=== PATIENT | female | born 1935 | race African-American/Black ===

== ENCOUNTER 2016-11-10 02:01 | Emergency (ER) | payer MEDICARE ==
[2015-05-24 11:11] VITALS: BMI 16.8
[~2016-11-10 02:01] MED LIST: ACIDOPHILUS LAC1 CAP PO; BAYER CHEWABLE81 MG PO; CENTRUM COMPLE1 EACH PO; COLACE100 MG PO; EZFE 200200 MG PO; HYDROCODONE-APA1 TAB PO; IPRAT-ALBUT 0.5-3 ML UPD; LEVAQUIN500 MG PO; LISINOPRIL10 MG PO; LOVENOX40 MG/0.4 SC; LYRICA25 MG PO; MAG-OX 400 MG400 MG PO; MAG-OXIDE400 MG PO; MUCUS RELIEF400 MG PO; MULTI-DAY VITAM1 TAB PO; POLYTRIM EYE DR10 ML EACH EYE; REMERON15 MG PO; SENNA8.6 MG PO; TYLENOL W/CODEI1 TAB PO; ULTRAM50 MG PO; VITAMIN D2000 UNIT PO; ZOCOR40 MG PO
[2016-11-10 02:44] LABS: BASOPHILS 0.6 % (0-2); EOSINOPHILS 2.8 % (0-7); HEMATOCRIT 38.2 % (36.0-48.0); HEMOGLOBIN 12.4 g/dL (12-16); IMMATURE GRANULOCYTES 0.3 % (0-5); MCH 27.6 pg (26.0-34.0); MCHC 32.5 g/dL (31.0-37.0); MCV 85.1 fL (80.0-100.0); MEAN PLATELET VOLUME 9.4 fL (7.4-10.4); MONOCYTES 6.9 % (2-11); NEUTROPHILS 52.4 % (40-80); PLATELET COUNT 306 10x3/uL (130-400); RBC 4.49 10x6/uL (4.00-5.40); RDW 14.6 % (11.5-14.5); WBC 6.4 10x3/uL (4.8-10.8)
[2016-11-10 02:57] LABS: APTT 25.6 SECONDS (22.8-39.4); INR 0.99 (0.85-1.17); PROTIME 12.9 SECONDS (11.6-15.0)
[2016-11-10 03:02] LABS: ALBUMIN 3.6 g/dL (3.4-5.0); ALKALINE PHOSPHATASE 130 U/L (46-116); ALT (SGPT) 29 U/L (10-68); CALC OSMOLALITY 279 mosm/kg (275-300); CALCIUM 9.3 mg/dL (8.5-10.1); CARBON DIOXIDE 31.3 mmol/L (21.0-32.0); CHLORIDE - SERUM 105 mmol/L (98-107); CREATININE - SERUM 0.7 mg/dL (0.6-1.3); GLUCOSE 119 mg/dL (74-106); POTASSIUM - SERUM 4.1 mmol/L (3.5-5.1); PROTEIN - SERUM 7.8 g/dL (6.4-8.2); SODIUM 140 mmol/L (136-145); UREA NITROGEN 12 mg/dL (7-18); eGFR NON AFRICAN AMERICAN 85 mL/min (90-120)
== END 2016-11-10 04:50 | disposition home or self-care (01) ==
LOC: D.ER 02:01
PROVIDERS: Emergency Medicine
DX: K92.0 Hematemesis (principal); Z86.73 Personal history of transient ischemic attack (TIA), and cerebral infarction without residual deficits

== ENCOUNTER 2017-01-31 01:17 | Emergency (ER) | payer MEDICARE | END 2017-01-31 03:32 | disposition home or self-care (01) | LOC: D.ER 01:17 | DX: R11.10 Vomiting, unspecified (principal); N39.0 Urinary tract infection, site not specified; Z86.73 Personal history of transient ischemic attack (TIA), and cerebral infarction without residual deficits; Z85.118 Personal history of other malignant neoplasm of bronchus and lung ==

== ENCOUNTER 2017-05-18 22:26 | Emergency (ER) | payer MEDICARE ==
[2015-05-24 11:11] VITALS: BMI 16.8
[2017-05-18 23:14] LABS: BASOPHILS 0.5 % (0-2); EOSINOPHILS 3.2 % (0-7); HEMATOCRIT 35.9 % (36.0-48.0); HEMOGLOBIN 11.7 g/dL (12-16); IMMATURE GRANULOCYTES 0.3 % (0-5); MCH 27.3 pg (26.0-34.0); MCHC 32.6 g/dL (31.0-37.0); MCV 83.7 fL (80.0-100.0); MEAN PLATELET VOLUME 8.9 fL (7.4-10.4); RBC 4.29 10x6/uL (4.00-5.40); RDW 14.9 % (11.5-14.5); WBC 7.7 10x3/uL (4.8-10.8)
[2017-05-18 23:20] LABS: PLATELET COUNT 372 10x3/uL (130-400)
[2017-05-18 23:26] LABS: APTT 26.8 SECONDS (22.8-39.4); INR 1.05 (0.85-1.17); PROTIME 13.3 SECONDS (11.6-15.0)
[2017-05-18 23:30] LABS: ALBUMIN 3.6 g/dL (3.4-5.0); ALKALINE PHOSPHATASE 131 U/L (46-116); ALT (SGPT) 49 U/L (10-68); AMYLASE - SERUM 134 U/L (25-115); BILIRUBIN - TOTAL 0.23 mg/dL (0.2-1.3); CALC OSMOLALITY 276 mosm/kg (275-300); CALCIUM 9.4 mg/dL (8.5-10.1); CHLORIDE - SERUM 102 mmol/L (98-107); CREATININE - SERUM 0.7 mg/dL (0.6-1.3); GLUCOSE 125 mg/dL (74-106); LIPASE 99 U/L (73-393); POTASSIUM - SERUM 3.7 mmol/L (3.5-5.1); PROTEIN - SERUM 7.8 g/dL (6.4-8.2); SODIUM 139 mmol/L (136-145); UREA NITROGEN 8 mg/dL (7-18); eGFR NON AFRICAN AMERICAN 85 mL/min (90-120)
[2017-05-19 00:08] LABS: APPEARANCE CLEAR (CLEAR); BILIRUBIN NEGATIVE (NEGATIVE); COLOR YELLOW (YELLOW); GLUCOSE NEGATIVE (NEGATIVE); KETONE NEGATIVE (NEGATIVE); NITRITE NEGATIVE (NEGATIVE); PROTEIN NEGATIVE (NEGATIVE); SPECIFIC GRAVITY 1.005 (1.005-1.020); UROBILINOGEN NORMAL (NORMAL)
== END 2017-05-19 01:33 | disposition home or self-care (01) ==
LOC: D.ER 22:26
PROVIDERS: Emergency Medicine
DX: R11.10 Vomiting, unspecified (principal)

== ENCOUNTER 2017-10-26 03:03 | Emergency (ER) | payer MEDICARE ==
[~2017-10-26] VITALS: Ht 157.5 cm; Wt 50.0 kg
[2017-10-26 03:11] VITALS: Ht 157.5 cm; Wt 50.0 kg
[2017-10-26 03:36] LABS: BASOPHILS 0.5 % (0-2); EOSINOPHILS 0.9 % (0-7); HEMATOCRIT 38.1 % (36.0-48.0); HEMOGLOBIN 12.9 g/dL (12-16); IMMATURE GRANULOCYTES 0.5 % (0-5); LYMPHOCYTES 29.8 % (15-50); MCH 28.2 pg (26.0-34.0); MCHC 33.9 g/dL (31.0-37.0); MCV 83.4 fL (80.0-100.0); MEAN PLATELET VOLUME 9.2 fL (7.4-10.4); MONOCYTES 8.2 % (2-11); NEUTROPHILS 60.1 % (40-80); PLATELET COUNT 322 10x3/uL (130-400); RBC 4.57 10x6/uL (4.00-5.40); RDW 14.1 % (11.5-14.5); WBC 6.6 10x3/uL (4.8-10.8)
[2017-10-26 03:53] LABS: ALBUMIN 3.5 g/dL (3.4-5.0); ALKALINE PHOSPHATASE 138 U/L (46-116); ALT (SGPT) 44 U/L (10-68); BILIRUBIN - TOTAL 0.22 mg/dL (0.2-1.3); CALC OSMOLALITY 274 mosm/kg (275-300); CALCIUM 9.2 mg/dL (8.5-10.1); CARBON DIOXIDE 28.6 mmol/L (21.0-32.0); CHLORIDE - SERUM 99 mmol/L (98-107); CREATININE - SERUM 0.8 mg/dL (0.6-1.3); GLUCOSE 127 mg/dL (74-106); POTASSIUM - SERUM 4.2 mmol/L (3.5-5.1); PROTEIN - SERUM 8.2 g/dL (6.4-8.2); SODIUM 137 mmol/L (136-145); UREA NITROGEN 10 mg/dL (7-18); eGFR NON AFRICAN AMERICAN 73 mL/min (90-120)
[2017-10-26 04:01] LABS: LIPASE 141 U/L (73-393); PRO BNP 116 pg/mL (0-450)
[2017-10-26 04:02] LABS: TROPONIN-I < 0.017 ng/mL (0.000-0.060)
[2017-10-26] MEDS ORDERED: ZOFRAN ODT4 MG/UDTAB PO (04:19)
[2017-10-26 04:45] VITALS: BP 164/80
== END 2017-10-26 04:54 ==
LOC: D.ER 03:03
PROVIDERS: Family Medicine
DX: K92.0 Hematemesis (principal); Z86.73 Personal history of transient ischemic attack (TIA), and cerebral infarction without residual deficits; I10 Essential (primary) hypertension

== ENCOUNTER 2017-12-15 01:44 | Inpatient (IN) | payer MEDICARE ==
[2017-12-15] VITALS (12 sets, daily range): BP systolic 100–135; BP diastolic 48–87; Ht 157.5 cm; Wt 49.9 kg
[~2017-12-15] VITALS: Ht 157.5 cm; Wt 49.9 kg
--- NOTE | ~2017-12-15 | MORECARE ---
CASE MANAGEMENT DISCHARGE SUMMARY PATIENT: JIA SOLITARIO REE UNIT: [id number] ADM DATE: 12/15/17 AGE: 82 : 39 SEX: F ROOM/BED: D.[facility] AUTHOR: CASE, MOTOR ELECTRICIAN PHYSICIAN: REFERRING PHYSICIAN: BLANCHE CONTRERAS MD DATE OF SERVICE: 12/15/17 Discharge Plan Patient Name: JIA SOLITARIO Facility: [facility]:Robert Lee : 1935 Planned Disposition: Anticipated Discharge Date: Discharge Date: 12/16/2017 Expected LOS: 0 Initial Reviewer: [email or web address] Initial Review Date: 12/15/2017 Generated: 12/17/17 11:18 am Comments DCP- Discharge Planning Updated by [email or web address]: Ewa Kim on 12/16/17 11:[address] PATIENT'S NEPHEW WILL BE TRANSPORTING PATIENT BACK TO THE [facility]. 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. She will be discharging back to the [facility] today in a termite treater bed. I spoke with Cheli. The [facility] will be picking her up at 2:30 in their van. I called Shandra (daughter) to let her know that she had a discharge, but she did not answer. CM will continue to follow and assist with DC planning as needed. In Store Banker: Ewa Kim External Providers External Provider[facility] Next Contact Date: Service Request Date: Service Type: Resolution: Reviewer: Comments: Patient Name: JIA SOLITARIO Page [id number] All edits/amendments must be made on the electronic document DICTATION DATE: 12/17/[address] PRODUCTION MANAGER: 12/17/17 1017 RPT#: [id number] DC DATE:12/16/17 STATUS: DIS IN [facility] [address] [place] [address] END OF REPORT
[~2017-12-15 01:44] MED LIST changes: +ZOFRAN ODT4 MG/UDTAB PO
[2017-12-15 02:25] LABS: BASOPHILS 0.5 % (0-2); EOSINOPHILS 3.4 % (0-7); HEMATOCRIT 37.9 % (36.0-48.0); HEMOGLOBIN 12.6 g/dL (12-16); IMMATURE GRANULOCYTES 0.3 % (0-5); LYMPHOCYTES 41.1 % (15-50); MCH 28.2 pg (26.0-34.0); MCHC 33.2 g/dL (31.0-37.0); MCV 84.8 fL (80.0-100.0); MEAN PLATELET VOLUME 9.3 fL (7.4-10.4); NEUTROPHILS 46.7 % (40-80); PLATELET COUNT 307 10x3/uL (130-400); RBC 4.47 10x6/uL (4.00-5.40); WBC 6.5 10x3/uL (4.8-10.8)
[2017-12-15 02:39] LABS: ALBUMIN 3.5 g/dL (3.4-5.0); ALKALINE PHOSPHATASE 130 U/L (46-116); ALT (SGPT) 38 U/L (10-68); BILIRUBIN - TOTAL 0.21 mg/dL (0.2-1.3); CALC OSMOLALITY 271 mosm/kg (275-300); CALCIUM 9.1 mg/dL (8.5-10.1); CARBON DIOXIDE 33.4 mmol/L (21.0-32.0); CHLORIDE - SERUM 100 mmol/L (98-107); CREATININE - SERUM 0.8 mg/dL (0.6-1.3); GLUCOSE 108 mg/dL (74-106); POTASSIUM - SERUM 4.4 mmol/L (3.5-5.1); PROTEIN - SERUM 7.9 g/dL (6.4-8.2); SODIUM 136 mmol/L (136-145); UREA NITROGEN 10 mg/dL (7-18); eGFR NON AFRICAN AMERICAN 73 mL/min (90-120)
[2017-12-15 02:44] LABS: AMYLASE - SERUM 127 U/L (25-115); LIPASE 159 U/L (73-393)
[2017-12-15 02:45] LABS: TROPONIN-I < 0.017 ng/mL (0.000-0.060)
[2017-12-15 03:09] LABS: APPEARANCE CLOUDY (CLEAR); BILIRUBIN NEGATIVE (NEGATIVE); COLOR YELLOW (YELLOW); GLUCOSE NEGATIVE (NEGATIVE); KETONE NEGATIVE (NEGATIVE); NITRITE POSITIVE (NEGATIVE); PROTEIN 1+ mg/dL (NEGATIVE); SPECIFIC GRAVITY 1.005 (1.005-1.020); UROBILINOGEN NORMAL (NORMAL)
[2017-12-15 03:11] LABS: BACTERIA MANY /hpf (NONE SEEN); EPITHELIAL CELLS 0-5 /hpf (0-5)
[2017-12-15 07:41] LABS: BASOPHILS 0.3 % (0-2); EOSINOPHILS 1.3 % (0-7); HEMATOCRIT 39.1 % (36.0-48.0); HEMOGLOBIN 13.1 g/dL (12-16); IMMATURE GRANULOCYTES 0.3 % (0-5); LYMPHOCYTES 34.7 % (15-50); MCH 28.3 pg (26.0-34.0); MCHC 33.5 g/dL (31.0-37.0); MCV 84.4 fL (80.0-100.0); MEAN PLATELET VOLUME 9.4 fL (7.4-10.4); MONOCYTES 8.7 % (2-11); NEUTROPHILS 54.7 % (40-80); PLATELET COUNT 285 10x3/uL (130-400); RBC 4.63 10x6/uL (4.00-5.40); RDW 14.2 % (11.5-14.5); WBC 6.2 10x3/uL (4.8-10.8)
[2017-12-15 08:06] LABS: APTT 27.1 SECONDS (22.8-39.4); INR 0.95 (0.85-1.17); PROTIME 12.3 SECONDS (11.6-15.0)
[2017-12-15] MEDS ORDERED: MELATONIN 3 MG1 TAB PO (15:08)
[2017-12-15] MEDS ORDERED: NEXIUM20 MG PO (15:10)
[2017-12-15] MEDS ORDERED: OMEPRAZOLE20 M1 PO (15:12)
[2017-12-15] MEDS ORDERED: DEPAKOTE125 MG PO (15:15)
[2017-12-15] MEDS ORDERED: ATIVAN0.5 MG PO (15:16)
[2017-12-15] MEDS ORDERED: NEURONTIN 300300 MG PO (15:17)
[2017-12-15] MEDS ORDERED: NORCO 7.5/325 T1 TA1 PO (15:20)
[2017-12-15 15:33] LABS: BASOPHILS 0.4 % (0-2); EOSINOPHILS 1.6 % (0-7); HEMATOCRIT 37.4 % (36.0-48.0); HEMOGLOBIN 12.3 g/dL (12-16); IMMATURE GRANULOCYTES 0.1 % (0-5); MCH 28.1 pg (26.0-34.0); MCHC 32.9 g/dL (31.0-37.0); MCV 85.6 fL (80.0-100.0); MEAN PLATELET VOLUME 9.5 fL (7.4-10.4); MONOCYTES 10.3 % (2-11); NEUTROPHILS 53.6 % (40-80); PLATELET COUNT 274 10x3/uL (130-400); RBC 4.37 10x6/uL (4.00-5.40); RDW 14.6 % (11.5-14.5); WBC 7.4 10x3/uL (4.8-10.8)
[2017-12-15 18:59] LABS: BASOPHILS 0.4 % (0-2); EOSINOPHILS 1.9 % (0-7); HEMATOCRIT 35.5 % (36.0-48.0); HEMOGLOBIN 11.9 g/dL (12-16); IMMATURE GRANULOCYTES 0.1 % (0-5); LYMPHOCYTES 35.4 % (15-50); MCH 28.2 pg (26.0-34.0); MCHC 33.5 g/dL (31.0-37.0); MCV 84.1 fL (80.0-100.0); MEAN PLATELET VOLUME 9.3 fL (7.4-10.4); MONOCYTES 11.4 % (2-11); NEUTROPHILS 50.8 % (40-80); PLATELET COUNT 291 10x3/uL (130-400); RBC 4.22 10x6/uL (4.00-5.40); RDW 14.4 % (11.5-14.5); WBC 7.4 10x3/uL (4.8-10.8)
[2017-12-16] VITALS: BP 127/70
[2017-12-16 04:57] VITALS: BP 121/63
[2017-12-16 07:07] LABS: BASOPHILS 0.3 % (0-2); EOSINOPHILS 0.9 % (0-7); HEMATOCRIT 36.4 % (36.0-48.0); HEMOGLOBIN 11.9 g/dL (12-16); IMMATURE GRANULOCYTES 0.1 % (0-5); MCH 27.5 pg (26.0-34.0); MCHC 32.7 g/dL (31.0-37.0); MCV 84.3 fL (80.0-100.0); MEAN PLATELET VOLUME 9.3 fL (7.4-10.4); MONOCYTES 9.4 % (2-11); NEUTROPHILS 58.3 % (40-80); PLATELET COUNT 322 10x3/uL (130-400); RBC 4.32 10x6/uL (4.00-5.40); RDW 14.5 % (11.5-14.5); WBC 8.7 10x3/uL (4.8-10.8)
[2017-12-16 07:23] LABS: ALBUMIN 3.7 g/dL (3.4-5.0); BILIRUBIN - TOTAL 0.28 mg/dL (0.2-1.3); CALCIUM 9.2 mg/dL (8.5-10.1); CARBON DIOXIDE 27.8 mmol/L (21.0-32.0); CREATININE - SERUM 0.8 mg/dL (0.6-1.3); POTASSIUM - SERUM 3.8 mmol/L (3.5-5.1); PROTEIN - SERUM 7.5 g/dL (6.4-8.2)
[2017-12-16] MEDS ORDERED: NEXIUM20 MG PO (08:39)
[2017-12-16] MEDS ORDERED: OMEPRAZOLE20 M1 PO (08:40)
== END 2017-12-16 13:02 | DRG 378 ==
LOC: D.ER 01:44 → D.EDHOLD 05:07 → D.ICU 07:02 → D.MS 14:46
PROVIDERS: Family Medicine; Internal Medicine Gastroenterology
PROC: 0DB78ZX Excision of Stomach, Pylorus, Via Natural or Artificial Opening Endoscopic, Diagnostic (ICD-10-PCS; principal; 2017-12-16 07:00)
DX: K92.2 Gastrointestinal hemorrhage, unspecified (principal); N39.0 Urinary tract infection, site not specified; K22.10 Ulcer of esophagus without bleeding; D64.9 Anemia, unspecified; I10 Essential (primary) hypertension; F03.90 Unspecified dementia, unspecified severity, without behavioral disturbance, psychotic disturbance, mood disturbance, and anxiety; R79.89 Other specified abnormal findings of blood chemistry; K44.9 Diaphragmatic hernia without obstruction or gangrene; K29.70 Gastritis, unspecified, without bleeding; K29.80 Duodenitis without bleeding

== ENCOUNTER 2018-04-12 09:30 | Emergency (ER) | payer MEDICARE ==
[~2018-04-12] VITALS: Ht 157.5 cm; Wt 50.0 kg
[~2018-04-12 09:30] MED LIST changes: +ATIVAN0.5 MG PO; +DEPAKOTE125 MG PO; +MELATONIN 3 MG1 TAB PO; +NEURONTIN 300300 MG PO; +NEXIUM20 MG PO; +NORCO 7.5/325 T1 TA1 PO; +OMEPRAZOLE20 M1 PO
[2018-04-12 09:32] VITALS: Ht 157.5 cm; Wt 50.0 kg
[2018-04-12 10:21] LABS: APPEARANCE CLEAR (CLEAR); BILIRUBIN NEGATIVE (NEGATIVE); COLOR YELLOW (YELLOW); EPITHELIAL CELLS OCC /hpf (0-5); GLUCOSE NEGATIVE (NEGATIVE); KETONE NEGATIVE (NEGATIVE); NITRITE NEGATIVE (NEGATIVE); PROTEIN NEGATIVE (NEGATIVE); RED CELLS - URINE OCC /hpf (0-5); SPECIFIC GRAVITY 1.005 (1.005-1.020); UROBILINOGEN NORMAL (NORMAL); WHITE CELLS - URINE OCC /hpf (0-5)
[2018-04-12 10:21] LABS: BASOPHILS 0.2 % (0-2); EOSINOPHILS 1.2 % (0-7); HEMATOCRIT 37.9 % (36.0-48.0); HEMOGLOBIN 12.3 g/dL (12-16); IMMATURE GRANULOCYTES 0.2 % (0-5); LYMPHOCYTES 23.7 % (15-50); MCH 27.5 pg (26.0-34.0); MCHC 32.5 g/dL (31.0-37.0); MCV 84.6 fL (80.0-100.0); MEAN PLATELET VOLUME 9.3 fL (7.4-10.4); MONOCYTES 8.2 % (2-11); NEUTROPHILS 66.5 % (40-80); PLATELET COUNT 330 10x3/uL (130-400); RBC 4.48 10x6/uL (4.00-5.40); RDW 14.2 % (11.5-14.5); WBC 8.7 10x3/uL (4.8-10.8)
[2018-04-12 10:22] LABS: BACTERIA FEW /hpf (NONE SEEN); MUCUS <1+ /lpf (NONE SEEN)
[2018-04-12 10:32] LABS: ALBUMIN 3.4 g/dL (3.4-5.0); ALKALINE PHOSPHATASE 102 U/L (46-116); ALT (SGPT) 17 U/L (10-68); AMYLASE - SERUM 121 U/L (25-115); BILIRUBIN - TOTAL 0.24 mg/dL (0.2-1.3); CALC OSMOLALITY 274 mosm/kg (275-300); CALCIUM 9.2 mg/dL (8.5-10.1); CARBON DIOXIDE 27.5 mmol/L (21.0-32.0); CHLORIDE - SERUM 102 mmol/L (98-107); CREATININE - SERUM 0.7 mg/dL (0.6-1.3); GLUCOSE 108 mg/dL (74-106); LIPASE 125 U/L (73-393); POTASSIUM - SERUM 4.1 mmol/L (3.5-5.1); PROTEIN - SERUM 8.3 g/dL (6.4-8.2); SODIUM 137 mmol/L (136-145); UREA NITROGEN 12 mg/dL (7-18); eGFR NON AFRICAN AMERICAN 85 mL/min (90-120)
[2018-04-12] MEDS ORDERED: CARAFATE1 G/10 ML PO (11:56)
[2018-04-12 12:38] VITALS: BP 135/70
== END 2018-04-12 12:40 ==
LOC: D.ER 09:30
PROVIDERS: Family Medicine
DX: K29.70 Gastritis, unspecified, without bleeding (principal); R11.10 Vomiting, unspecified; R10.10 Upper abdominal pain, unspecified; Z86.73 Personal history of transient ischemic attack (TIA), and cerebral infarction without residual deficits; Z85.118 Personal history of other malignant neoplasm of bronchus and lung

== ENCOUNTER 2018-07-10 10:49 | Emergency (ER) | payer MEDICARE ==
[~2018-07-10] VITALS: Ht 157.5 cm; Wt 68.2 kg
[~2018-07-10 10:49] MED LIST changes: +CARAFATE1 G/10 ML PO
[2018-07-10 10:56] VITALS: Ht 157.5 cm; Wt 68.2 kg
[2018-07-10 12:26] LABS: BASOPHILS 0.8 % (0-2); EOSINOPHILS 2.6 % (0-7); HEMATOCRIT 36.7 % (36.0-48.0); HEMOGLOBIN 11.8 g/dL (12-16); IMMATURE GRANULOCYTES 0.3 % (0-5); MCH 27.4 pg (26.0-34.0); MCHC 32.2 g/dL (31.0-37.0); MCV 85.3 fL (80.0-100.0); MEAN PLATELET VOLUME 10.2 fL (7.4-10.4); MONOCYTES 9.4 % (2-11); NEUTROPHILS 44.9 % (40-80); PLATELET COUNT 284 10x3/uL (130-400); RDW 14.8 % (11.5-14.5); WBC 7.3 10x3/uL (4.8-10.8)
[2018-07-10 12:46] LABS: ALBUMIN 3.5 g/dL (3.4-5.0); ALKALINE PHOSPHATASE 117 U/L (46-116); ALT (SGPT) 19 U/L (10-68); BILIRUBIN - TOTAL 0.21 mg/dL (0.2-1.3); CALC OSMOLALITY 285 mosm/kg (275-300); CALCIUM 8.8 mg/dL (8.5-10.1); CARBON DIOXIDE 26.6 mmol/L (21.0-32.0); CHLORIDE - SERUM 104 mmol/L (98-107); CREATININE - SERUM 0.7 mg/dL (0.6-1.3); GLUCOSE 93 mg/dL (74-106); POTASSIUM - SERUM 4.3 mmol/L (3.5-5.1); PROTEIN - SERUM 7.4 g/dL (6.4-8.2); SODIUM 143 mmol/L (136-145); UREA NITROGEN 15 mg/dL (7-18); eGFR NON AFRICAN AMERICAN 85 mL/min (90-120)
[2018-07-10 12:52] LABS: INR 1.04 (0.85-1.17); PROTIME 13.1 SECONDS (11.6-15.0)
[2018-07-10 12:54] LABS: D-DIMER-QUANTITATIVE 0.55 ug/mLFEU (0.20-0.54)
[2018-07-10 12:58] LABS: CKMB 3.5 U/L (0.0-3.6); CREATINE KINASE 264 UL (21-215); PRO BNP 61 pg/mL (0-450); TROPONIN-I < 0.017 ng/mL (0.000-0.060)
[2018-07-10 14:30] VITALS: BP 173/80
== END 2018-07-10 14:30 ==
LOC: D.ER 10:49
PROVIDERS: Family Medicine
DX: R60.0 Localized edema (principal); Z86.73 Personal history of transient ischemic attack (TIA), and cerebral infarction without residual deficits; E11.9 Type 2 diabetes mellitus without complications; I10 Essential (primary) hypertension; J44.9 Chronic obstructive pulmonary disease, unspecified

== ENCOUNTER 2018-07-29 02:14 | Emergency (ER) | payer MEDICARE ==
[~2018-07-29] VITALS: Ht 157.5 cm; Wt 72.7 kg
[2018-07-29 02:17] VITALS: Ht 157.5 cm; Wt 72.7 kg
[2018-07-29 03:22] LABS: BASOPHILS 0.2 % (0-2); EOSINOPHILS 0.9 % (0-7); HEMATOCRIT 39.2 % (36.0-48.0); IMMATURE GRANULOCYTES 0.5 % (0-5); LYMPHOCYTES 16.9 % (15-50); MCH 27.9 pg (26.0-34.0); MCHC 33.2 g/dL (31.0-37.0); MCV 84.1 fL (80.0-100.0); MONOCYTES 9.2 % (2-11); NEUTROPHILS 72.3 % (40-80); RBC 4.66 10x6/uL (4.00-5.40); RDW 14.5 % (11.5-14.5); WBC 12.8 10x3/uL (4.8-10.8)
[2018-07-29 03:24] LABS: PLATELET COUNT 385 10x3/uL (130-400)
[2018-07-29 03:26] LABS: ANION GAP 17.6 mmol/L (8-16); BILIRUBIN - TOTAL 0.26 mg/dL (0.2-1.3); CALCIUM 9.6 mg/dL (8.5-10.1); CARBON DIOXIDE 23.9 mmol/L (21.0-32.0); CREATININE - SERUM 1.5 mg/dL (0.6-1.3); POTASSIUM - SERUM 3.5 mmol/L (3.5-5.1); PROTEIN - SERUM 9.2 g/dL (6.4-8.2)
[2018-07-29 03:27] LABS: APTT 26.3 SECONDS (22.8-39.4); INR 1.1 (0.85-1.17); PROTIME 13.7 SECONDS (11.6-15.0)
[2018-07-29] MEDS ORDERED: OMEPRAZOLE40 MG PO (04:22)
[2018-07-29 06:21] VITALS: BP 128/74
== END 2018-07-29 06:21 | disposition home or self-care (01) ==
LOC: D.ER 02:14
PROVIDERS: Family Medicine
DX: R11.10 Vomiting, unspecified (principal); Z87.19 Personal history of other diseases of the digestive system

== ENCOUNTER 2018-08-06 11:48 | Emergency (ER) | payer MEDICARE ==
[~2018-08-06 11:48] MED LIST changes: +OMEPRAZOLE40 MG PO
[2018-08-06 11:55] VITALS: BP 127/67; Ht 157.5 cm
== END 2018-08-06 17:14 ==
LOC: D.ER 11:48
DX: S09.90XA Unspecified injury of head, initial encounter (principal); W05.0XXA Fall from non-moving wheelchair, initial encounter; Y93.89 Activity, other specified; Y92.019 Unspecified place in single-family (private) house as the place of occurrence of the external cause